=== PATIENT | female | born 1965 | race Caucasian/White ===

== ENCOUNTER 2017-11-27 13:13 | Emergency (ER) | payer BC, OTHER ==
[2017-11-27 13:26] VITALS: BMI 26.9
--- NOTE | 2017-11-27 14:04 | PDOC ---
Attending Attestation - HPI HPI: 11/27/17 14:08 This patient is a 52 year old female with no significant PMHx, who presents with epigastric pain for 7-8 months that acutely worsened last night. Patient states that her pain does not radiate, describes it as pressure like discomfort , rates 7/10, does not reports any alleviating or exacerbating factors. Last night she states that her epigastric pain became significantly worse and subsequently was unable to sleep. She denies taking anything for the pain including Tylenol or Motrin. She reports some shortness of breath last night associated with her pain. She states that she saw her doctor last week who is testing her for possible allergies such as gluten. She states that she also has an appointment with her PCP on Thursday but came in today because she was unable to sleep. She denies recent nausea, vomiting, diaphoresis, fever, diarrhea, constipation , chest pain, back pain, diffculty breathing, dysuria, frequency, urgency, or flank pain. Allergies: NKDA - Physicial Exam PE: GENERAL: Awake, alert, and fully oriented, in no acute distress HEAD: No signs of trauma EYES: PERRLA, EOMI, sclera anicteric, conjunctiva clear LUNGS: Breath sounds equal, clear to auscultation bilaterally. No wheezes, and no crackles HEART: Regular rate and rhythm, normal S1 and S2, no murmurs, rubs or gallops ABDOMEN: Soft, mild epigastric tenderness to deep palpation, no guarding, no rebound. No masses EXTREMITIES: Normal range of motion, no edema. No clubbing or cyanosis. No cords, erythema, or tenderness NEUROLOGICAL: Cranial nerves II through XII grossly intact. Normal speech, normal gait SKIN: Warm, Dry, normal turgor, no rashes or lesions noted <Stefanie Diaz - Last Filed: 11/27/17 15:13> - Medical Decision Making 11/27/17 16:39 Pt presents to the ED complaining of RUQ pain that started 8 months ago but became acutely worse today. Differential included GERD, less likely biliary disease or pancreatitis, unlikely ACS. Labs are within normal limits, EKG is normal, RUQ US is negative and patient feels improved after pepcid. Will discharge home. <Melissa Ramirez - Last Filed: 11/27/17 16:56>
[2017-11-27] MEDS ORDERED: ACETAMINOPHEN 1000 MG/100 ML VIAL (NON FORMULARY) IVPB ONE (14:18)
[2017-11-27] MEDS ORDERED: SODIUM CHLORIDE 0.9% 500 ML INFUS.BAG IV ONE (14:18)
--- NOTE | 2017-11-27 14:20 | PDOC ---
History of Present Illness - General Chief Complaint: Pain, Acute Stated Complaint: ABD PAIN Time Seen by Provider: 11/27/17 14:02 History Source: Patient Exam Limitations: No Limitations - History of Present Illness Initial Comments: 52 yo F w no sig pmh is here with epigastric pain rated 7/10 which does not radiate, and is not associated with any nausea, vomiting, or recent fevers. She states she has had this epigastric pain for the past 7-8 months but last night it acutely worsened and she was in significant discomfort. She also endorses a short period of SOB last night. She is not sure if the pain is worse after meals and is not sure whether the pain is worse when she lies down or sits up. She also is not sure if the pain is worse at night. She has an Appt with her PCP on Thursday for this epigastric pain issue. She denies any chest pain, back pain, or difficulty breathing. She denies any recent fevers, chills, or infections. Denies headache, visionary changes. Denies dysuria, frequency, urgency. PCP: Dr. Alexis Allergies: NKA, NKDA Social Hx: Denies using cigarettes, alcohol, or illicit drug usage. Past History - Past Medical History Allergies/Adverse Reactions: Allergies Allergy/AdvReac Type Severity Reaction Status Date / Time No Known Allergies Allergy Verified 11/27/17 13:22 Home Medications: Ambulatory Orders Famotidine [Pepcid] 20 mg PO PRN #20 tablet 11/27/17 Mag Hydrox/Al Hydrox/Simeth [Mylanta Suspension -] 30 ml PO Q6H #1 bottle COPD: No - Suicide/Smoking/Psychosocial Hx Smoking Status: No Smoking History: Never smoked Number of Cigarettes Smoked Daily: 0 Review of Systems - Review of Systems Able to Perform ROS?: Yes Comments:: CONSTITUTIONAL: Absent: fever, chills, diaphoresis, generalized weakness, malaise, loss of appetite HEENT: Absent: rhinorrhea, nasal congestion, throat pain, throat swelling, difficulty swallowing, mouth swelling, ear pain, eye pain, visual Changes CARDIOVASCULAR: Absent: chest pain, syncope, palpitations, irregular heart rate, lightheadedness , peripheral edema RESPIRATORY: Present: shortness of breath Absent: cough, dyspnea with exertion, orthopnea, wheezing, stridor, hemoptysis GASTROINTESTINAL: Present: Abdominal pain Absent: abdominal distension, nausea, vomiting, diarrhea, constipation, melena, hematochezia GENITOURINARY: Absent: dysuria, frequency, urgency, hesitancy, hematuria, flank pain, genital pain MUSCULOSKELETAL: Absent: myalgia, arthralgia, joint swelling SKIN: Absent: rash, itching, pallor HEMATOLOGIC/IMMUNOLOGIC: Absent: easy bleeding, easy bruising, lymphadenopathy, frequent infections ENDOCRINE: Absent: unexplained weight gain, unexplained weight loss, heat intolerance, cold intolerance NEUROLOGIC: Absent: headache, focal weakness or paresthesias, dizziness, unsteady gait, seizure, mental status changes, bladder or bowel incontinence PSYCHIATRIC: Absent: anxiety, depression, suicidal or homicidal ideation, hallucinations. *Physical Exam - Vital Signs Last Vital Signs Temp Pulse Resp BP Pulse Ox 98.6 F 78 17 111/73 99 11/27/17 13:24 11/27/17 13:24 11/27/17 13:24 11/27/17 13:24 11/27/17 13:24 - Physical Exam Comments: GENERAL: Well developed, well nourished. Awake and alert. No acute distress. HEENT: Normocephalic, atraumatic. PERRLA, EOMI. No conjunctival pallor. Sclera are non- icteric. Moist mucous membranes. Oropharynx is clear. NECK: Supple. Full ROM. No JVD. No thyromegaly. No lymphadenopathy. CARDIOVASCULAR: Regular rate and rhythm. No murmurs, rubs, or gallops. Distal pulses are 2+ and symmetric. PULMONARY: No evidence of respiratory distress. Lungs clear to auscultation bilaterally. No wheezing, rales or rhonchi. ABDOMINAL: There is mild TTP in the epigastric region. No TTP in the RUQ. Negative heller sign. The abdomen is soft and non-distended. No rebound or guarding. No organomegaly. Normoactive bowel sounds. MUSCULOSKELETAL Normal range of motion at all joints. No bony deformities or tenderness. No CVA tenderness. EXTREMITIES: No cyanosis. No clubbing. No edema. No calf tenderness. SKIN: Warm and dry. Normal capillary refill. No rashes. No jaundice. NEUROLOGICAL: Alert, awake, appropriate. Cranial nerves 2-12 intact. No deficits to light touch in face, upper extremities and lower extremities. No motor deficits in the in face, upper extremities and lower extremities. Normal speech. Gait is normal without ataxia. PSYCHIATRIC: Cooperative. Good eye contact. Appropriate mood and affect. ED Treatment Course - LABORATORY CBC & Chemistry Diagram: 11/27/17 14:45 11/27/17 14:45 - RADIOLOGY Radiology Studies Ordered: Category Date Time Status CHEST PA & LAT [RAD] Stat Radiology 11/27/17 14:16 Ordered ABDOMEN US -LIMITED [US] Stat Ultrasound 11/27/17 14:17 Ordered Medical Decision Making - Medical Decision Making 52 yo F w no sig pmh is here with epigastric pain rated 7/10 which does not radiate, and is not associated with any nausea, vomiting, or recent fevers. She states she has had this epigastric pain for the past 7-8 months but last night it acutely worsened and she was in significant discomfort. DD includes but not limited to: ACS, Gallbladder disease, pancreatitis, GERD, PUD, Gastritis, Musculoskeletal pain. Plan: Cbc, Cmp, trop, mag, phos, lipase, lactic, vbg, ua/uc, hcg, ekg, cxr, ivf- ns, acetaminophen, RUQ us, re-assess. Labs, urine, ekg, unremarkable and WNL. RUQ showed no acute pathology or biliary disease. This pain is likely GERD or PUD or gastric related in nature. We are DCing patient with scripts for pepsid and maalox and PCP FU. *DC/Admit/Observation/Transfer Diagnosis at time of Disposition: Epigastric abdominal pain - Discharge Dispostion Disposition: HOME Condition at time of disposition: Stable Decision to Admit order: No - Prescriptions Prescriptions: Famotidine [Pepcid] 20 mg PO PRN #20 tablet Mag Hydrox/Al Hydrox/Simeth [Mylanta Suspension -] 30 ml PO Q6H #1 bottle - Referrals Referrals: Jose Juan Bush MD [Staff Physician] - - Patient Instructions Printed Discharge Instructions: DI for Epigastric Pain Additional Instructions: You came into the ER with epigastric pain. We Did some test on your blood, urine , and heart. We also did an ultrasound on your abdomen and saw no problems with your gallbladder or pancreas. We believe your abdominal pain might be related to your stomach. We are sending two prescriptions to your pharmacy, please make sure to pick them up. Drink lots of fluids. Take tylenol or motrin as needed for pain control. Please make sure to schedule a follow up appointment with your primary care doctor in the next 3 to 5 days to make sure you are getting better and feeling better. Come back to the ER if you get a high fever, your pain worsens, you have difficulty breathing, or any other new or worsening concerns. Thank you for coming to the [facility] ER. We hope you feel better soon! Print Language: [place] - Post Discharge Activity
[2017-11-27] MEDS ORDERED: ACETAMINOPHEN INJECTION 100 ML IVPB ONE (14:24)
[2017-11-27 14:50] LABS: BASO % 0.6 % (0-2.0); EOS % 3.8 % (0-4.5); HEMATOCRIT 36.7 % (32.4-45.2); HEMOGLOBIN 12.4 GM/dL (10.7-15.3); LYMPH % 10.5 % (8-40); MCH 29.2 pg (25.7-33.7); MCHC 33.7 g/dl (32.0-36.0); MEAN CELL VOLUME 86.5 fl (80-96); MEAN PLT VOLUME 8.9 fl (7.5-11.1); MONO % 4.5 % (3.8-10.2); NEUT % 80.6 % (42.8-82.8); PLATELET COUNT 278 K/MM3 (134-434); RBC 4.24 M/mm3 (3.60-5.2); RDW 12.7 % (11.6-15.6); VENOUS PC02 43.1 mmHg (38-52); VENOUS PH 7.38 (7.32-7.42); VENOUS PO2 43.1 mmHg (28-48); WHITE BLOOD COUNT 10.8 K/mm3 (4.0-10.0)
[2017-11-27 15:13] LABS: ALBUMIN 3.6 g/dl (3.4-5.0); ALK PHOS 93 U/L (45-117); ANION GAP 6 MMOL/L (8-16); BILIRUBIN,TOTAL 0.8 mg/dL (0.2-1); BLOOD UREA NITROGEN 8 mg/dL (7-18); CALCIUM 8.9 mg/dL (8.5-10.1); CHLORIDE 107 mmol/L (98-107); CO2 27 mmol/L (21-32); CREATININE 0.6 mg/dL (0.55-1.3); GLUCOSE,RANDOM 76 mg/dL (74-106); LIPASE 92 U/L (73-393); MAGNESIUM 2.1 mg/dL (1.8-2.4); PHOSPHOROUS 3.3 mg/dL (2.5-4.9); POTASSIUM 3.8 mmol/L (3.5-5.1); SGOT/AST 25 U/L (15-37); SGPT/ALT 25 U/L (13-61); SODIUM 140 mmol/L (136-145); TOT PROT 7.2 g/dl (6.4-8.2)
[2017-11-27 15:16] LABS: HCG,QUALITATIVE URINE Negative
[2017-11-27 15:30] LABS: URINE APPEARANCE SLCLOUDY; URINE BILIRUBIN NEGATIVE (<2.0 mg/dL); URINE COLOR LTYELLOW; URINE GLUCOSE (UA) NEGATIVE (NEGATIVE); URINE KETONE TRACE (NEGATIVE); URINE LEUK ESTERASE NEGATIVE (NEGATIVE); URINE NITRITE NEGATIVE (NEGATIVE); URINE PROTEIN NEGATIVE (NEGATIVE); URINE UROBILINOGEN NEGATIVE mg/dL (0.2-1.0)
[2017-11-27 15:43] LABS: EPI CELLS MODERATE /HPF (FEW); URINE BACTERIA RARE /hpf (NONE SEEN); URINE MUCUS RARE
[2017-11-27 18:02] VITALS: BP 120/78; PULSE 68; TEMP 98.5
--- NOTE | 2017-11-28 10:26 | EKG ---
Test Reason : Blood Pressure : / mmHG Vent. Rate : 068 BPM Atrial Rate : 068 BPM P-R Int : 128 ms QRS Dur : 090 ms QT Int : 408 ms P-R-T Axes : 046 011 026 degrees QTc Int : 433 ms NORMAL SINUS RHYTHM LOW VOLTAGE QRS NO PREVIOUS ECGS AVAILABLE Confirmed by FERNANDO JURADO MD ([id number]) on 11/28/2017 10:26:44 AM Referred By: Confirmed By:FERNANDO JURADO MD
== END 2017-11-27 17:45 | disposition home or self-care (01) ==
LOC: JER 13:13
PROC: 3E033NZ Introduction of Analgesics, Hypnotics, Sedatives into Peripheral Vein, Percutaneous Approach (ICD-10-PCS; principal; 2017-11-27)
DX: R10.13 Epigastric pain (principal)
CPT/HCPCS: 36415; 76705-TC; 80053; 81003; 81015; 82550; 82803; 83605; 83690; 83735; 84100; 84484; 84703; 85025; 87086; 93005; 93010; 99282-25; J0131